=== PATIENT | male | born 1970 | race Caucasian/White ===

== ENCOUNTER 2020-07-11 11:41 | Observation (INO) | payer SELFPAY ==
[~2020-07-11] VITALS: Ht 175.3 cm; Wt 92.6 kg
--- NOTE | 2020-07-11 11:53 | NUR ---
PT BIB EMS FOR 10/10 CP THAT RADIATES TO HIS JAW AND LEFT ARM. PT WAS AT BUS STATION WHEN HE FELT SYMPTOMS. PT HAX HX OF ID AND SAYS THIS FEELS THE SAME. 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 PT REPORTS PAIN IMPROVEMENT TO 7/10 AFTER MEDS. PT RESTING IN [facility]. CONNECTED TO ALL MONITORING EQUIPMENT. EKG COMPLETE.
[2020-07-11] MEDS ORDERED: NITROGLYCERIN SINGLE TAB 0.4 MG SL ONE (11:58)
[2020-07-11] MEDS ORDERED: NITROGLYCERIN SINGLE TAB 0.4 MG SL PRN (12:00)
[2020-07-11] MEDS ORDERED: SODIUM CHLORIDE FLUSH 10ML SYR IVF ONE (12:00)
[2020-07-11 12:13] LABS: BASOPHILS % (AUTO) 2 % (0-1); EOSINOPHILS % (AUTO) 7 % (1-7); LYMPHOCYTES % (AUTO) 25 % (22-44); MEAN CORPUSCULAR HGB CONC 31.8 g/dL (33.2-36.2); MEAN PLATELET VOLUME 7.3 fL (7.4-10.4); MONOCYTES % (AUTO) 11 % (2-9); NEUTROPHILS % (AUTO) 55 % (42-75); PLATELET COUNT 215 x10^3/uL (130-400); RED BLOOD COUNT 5.21 x10^6/uL (4.38-5.82)
[2020-07-11 12:17] LABS: MD NO
[2020-07-11 12:21] LABS: ALBUMIN 3.9 g/dL (3.4-5.0); ANION GAP 3 mmol/L (5-15); CALCIUM 8.7 mg/dL (8.5-10.1); CHLORIDE 109 mmol/L (98-107); CREATININE 0.98 mg/dL (0.7-1.3)
[2020-07-11 12:24] LABS: TROPONIN I < 0.015 ng/mL (0.000-0.045)
[2020-07-11] MEDS ORDERED: HEPARIN 5,000 UNITS/ML, 1ML SQ SCH ×2 (13:00→18:30)
[2020-07-11] MEDS ORDERED: MAALOX/HYOSCYAMINE/LIDOCAINE 45 ML BTL PO ONE (13:00)
[2020-07-11] MEDS ORDERED: ONDANSETRON 2MG/ML, 2ML IVPush PRN (13:00)
[2020-07-11] MEDS ORDERED: NITROGLYCERIN 0.4 MG BOTTLE (25 TABS) SL PRN (13:00)
[2020-07-11] MEDS ORDERED: SODIUM CHLORIDE FLUSH 10ML SYR IVF PRN (13:00)
[2020-07-11] MEDS ORDERED: ACETAMINOPHEN 325 MG TABLET PO PRN (13:00)
[2020-07-11] MEDS ORDERED: LORazepam 2 MG/ML, 1ML IVPush PRN (13:00)
[2020-07-11] MEDS ORDERED: ONDANSETRON ODT 4 MG PO PRN (13:00)
--- NOTE | 2020-07-11 13:15 | NUR ---
PT RESTING IN [facility]. VSS. PT EDUCATED ON PLAN OF CARE
[2020-07-11 13:42] LABS: TROPONIN I < 0.015 ng/mL (0.000-0.045)
[2020-07-11] MEDS ORDERED: ONDANSETRON 2MG/ML, 2ML ONE (14:47)
[2020-07-11] MEDS ORDERED: MORPHINE SULFATE 4 MG/ML, 1ML ONE (14:48)
[2020-07-11] MEDS: morphine SULFATE 10 MG/ML, 1ML IVPush PRN ×3 (14:50→21:40)
--- NOTE | 2020-07-11 14:55 | NUR ---
REPORT RECEIVED FROM REINA SALGUERO. PATIENT MEDICATED PER EMAR FOR RECURRENT CHEST PIN RATED 7/10 ON LEFT STERNAL BORDER INTO NECK. GIVEN 2MG MORPHINE. MEAL TRAY COMING
--- NOTE | 2020-07-11 16:00 | NUR ---
PATIENT RESTING ON GURNEY, RESPIRATIONS EVEN AND UNLABORED, VSS, MONITORING IN PLACE, CALL LIGHT IN REACH. PROVIDED WITH CRACKERS AND JUICE WHILE WAITING FOR MEAL TRAY
--- NOTE | 2020-07-11 16:04 | NUR ---
ATTEMPTED TO CALL REPORT X1
--- NOTE | 2020-07-11 16:15 | NUR ---
REPORT GIVEN TO REINA CONTRERAS. PLAN OF CARE DISCUSSED
[2020-07-11 16:47] VITALS: BP 167/98
[2020-07-11] MEDS ORDERED: APIX5TAB PO (17:27)
[2020-07-11] MEDS ORDERED: PHEN100C PO (17:27)
[2020-07-11] MEDS ORDERED: ASPI81TA45 PO (17:27)
[2020-07-11] MEDS ORDERED: FURO40TA6 PO (17:27)
[2020-07-11] MEDS ORDERED: LISI-170 PO (17:27)
[2020-07-11] MEDS ORDERED: DIVA500T2 PO (17:27)
[2020-07-11] MEDS: CARVEDILOL 3.125 MG TABLET PO SCH (17:55)
[2020-07-11] MEDS: SODIUM CHLORIDE 0.9% 1,000 ML IV SCH (17:57)
[2020-07-11 18:39] VITALS: BP 153/98
[2020-07-11 19:28] VITALS: BP 148/80
[2020-07-11 19:29] LABS: TROPONIN I < 0.015 ng/mL (0.000-0.045)
[2020-07-11] MEDS ORDERED: PHENYTOIN 100 MG CAPSULE PO SCH (21:00)
[2020-07-11] MEDS ORDERED: ATORVASTATIN 80 MG TABLET PO SCH (21:00)
[2020-07-11] MEDS: APIXABAN 5 MG TABLET PO SCH (21:34)
[2020-07-12 00:55] VITALS: BP 132/70
[2020-07-12] MEDS: morphine SULFATE 10 MG/ML, 1ML IVPush PRN ×3 (02:23→09:00)
[2020-07-12] MEDS: CARVEDILOL 3.125 MG TABLET PO SCH (05:43)
[2020-07-12] MEDS ORDERED: ASPIRIN 325 MG TABLET PO SCH (06:00)
[2020-07-12 06:02] LABS: ANION GAP 4 mmol/L (5-15); CALCIUM 8.1 mg/dL (8.5-10.1); CHLORIDE 108 mmol/L (98-107)
[2020-07-12 06:06] LABS: CHOL/HDL RATIO 6.5; CHOLESTEROL, TOTAL 188 mg/dL (140-239); CREATININE 0.91 mg/dL (0.7-1.3); HDL CHOL % 15 % (26-37); HDL CHOLESTEROL (DIRECT) 29 mg/dL (40-60); LDL CHOLESTEROL,CALCULATED 99 mg/dL (54-169); LDL/HDL RATIO 3.4 (0.5-3.0); TRIGLYCERIDES 299 mg/dL (50-200); VLDL CHOLESTEROL 60 mg/dL (0-25)
[2020-07-12 06:10] LABS: BASOPHILS % (AUTO) 1 % (0-1); EOSINOPHILS % (AUTO) 8 % (1-7); LYMPHOCYTES % (AUTO) 35 % (22-44); MEAN CORPUSCULAR HEMOGLOBIN 25.4 pg (27.5-34.5); MEAN CORPUSCULAR HGB CONC 32.1 g/dL (33.2-36.2); MEAN PLATELET VOLUME 7.5 fL (7.4-10.4); MONOCYTES % (AUTO) 10 % (2-9); NEUTROPHILS % (AUTO) 46 % (42-75); PLATELET COUNT 201 x10^3/uL (130-400); RED BLOOD COUNT 4.71 x10^6/uL (4.38-5.82)
[2020-07-12 07:02] LABS: MD NO
[2020-07-12] MEDS: SODIUM CHLORIDE 0.9% 1,000 ML IV SCH (07:41)
[2020-07-12 08:36] VITALS: BP 149/86
[2020-07-12] MEDS ORDERED: DIVALPROEX 500 MG TAB.ER.24H PO SCH (09:00)
[2020-07-12] MEDS ORDERED: LISINOPRIL 20 MG TABLET PO SCH ×2 (09:00→12:30)
[2020-07-12] MEDS: APIXABAN 5 MG TABLET PO SCH (09:05)
[2020-07-12] MEDS ORDERED: REGADENOSON 0.4 MG/5 ML SYRINGE ONE (09:36)
[2020-07-12] MEDS ORDERED: LISI1TAB20 PO (12:07)
[2020-07-12] MEDS ORDERED: HYDROCHLOROTHIAZIDE 25 MG TABLET PO SCH (12:30)
[2020-07-12 13:05] VITALS: BP 152/94
[2020-07-12] MEDS ORDERED: PHENYTOIN 100 MG CAPSULE ONE (13:19)
[2020-07-12] MEDS ORDERED: ATOR-2 PO (13:33)
[2020-07-12] MEDS ORDERED: HYDR-3341 PO (13:33)
[2020-07-12] MEDS ORDERED: CARV3.1212 PO (13:33)
[2020-07-12] MEDS ORDERED: ACET325T26 PO (13:33)
[2020-07-12] MEDS ORDERED: NITR0.4T41 SL (13:33)
[2020-07-13] MEDS ORDERED: ASPIRIN 81 MG TABLET EC PO SCH (06:00)
[2020-07-13] MEDS ORDERED: PHENYTOIN 100 MG CAPSULE PO SCH (09:00)
== END 2020-07-12 14:46 | disposition left against medical advice (07) ==
LOC: ED 13:25 → INTOOBSV 13:32 → EDIP 13:32 → 5SO 16:37
PROVIDERS: ADMIT Internal Medicine; ATTEND Internal Medicine
DX: I25.119 Atherosclerotic heart disease of native coronary artery with unspecified angina pectoris (principal); I25.2 Old myocardial infarction; I11.0 Hypertensive heart disease with heart failure; I50.9 Heart failure, unspecified; I48.91 Unspecified atrial fibrillation; G40.909 Epilepsy, unspecified, not intractable, without status epilepticus; E66.9 Obesity, unspecified; E78.00 Pure hypercholesterolemia, unspecified; E78.5 Hyperlipidemia, unspecified; E78.1 Pure hyperglyceridemia; Z76.5 Malingerer [conscious simulation]; G47.30 Sleep apnea, unspecified; Z79.82 Long term (current) use of aspirin; Z79.899 Other long term (current) drug therapy; Z86.74 Personal history of sudden cardiac arrest; Z88.0 Allergy status to penicillin; Z86.73 Personal history of transient ischemic attack (TIA), and cerebral infarction without residual deficits; Z95.5 Presence of coronary angioplasty implant and graft
CPT/HCPCS: 36415; 71045; 78452; 80048; 80061; 80185; 82040; 83880; 84484; 85025; 93005; 93017; 96361; 96372; 96374; 96376; 99285; A9502; C9898; G0378; J1644; J2270; J2785; J7030